=== PATIENT | male | born 1990 | race Two or more races ===

== ENCOUNTER 2020-07-26 10:56 | Emergency (ER) | payer OTHER ==
[~2020-07-26] VITALS: Ht 177.8 cm; Wt 90.7 kg
[2020-07-26 10:56] VITALS: BP 190/121
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
[2020-07-26] MEDS ORDERED: LORazepam Inj 2mg/ml 1ml IV ONE ×3 (11:00→20:00)
--- NOTE | 2020-07-26 11:00 | NUR ---
ED Nurse Note: IV line established by EMT on right wrist 18, patent and intact. Blood, urine, covid swab collected and sent to lab.
--- NOTE | 2020-07-26 11:05 | NUR ---
Pt belongings placed in LOCKER #1
[2020-07-26] MEDS ORDERED: Omnipaque-300 100ml vial INJ ONE (11:15)
[2020-07-26 11:33] LABS: APPEARANCE,URINE CLEAR; BILIRUBIN, URINE NEGATIVE (NEGATIVE); COLOR,URINE PALE YELLOW; GLUCOSE, URINE (UA) 4+ (NEGATIVE); KETONES,URINE 1+ (NEGATIVE); LEUKOCYTE ESTERASE ,URINE NEGATIVE (NEGATIVE); NITRITE,URINE NEGATIVE (NEGATIVE); PH,URINE 5 (4.5-8.0); PROTEIN,URINE 4+ (NEGATIVE); UROBILINOGEN,URINE NORMAL MG/DL (0.0-1.0)
[2020-07-26 11:34] LABS: BASOPHILS % (AUTO) 3.8 % (0.0-2.0); EOSINOPHILS % (AUTO) 0.5 % (0.0-3.0); HEMATOCRIT 48.9 % (42.0-52.0); HEMOGLOBIN 16.2 G/DL (14.2-18.0); LYMPHOCYTES % (AUTO) 24.8 % (20.0-45.0); MEAN CORPUSCULAR VOLUME 93 FL (80-99); PLATELET COUNT 188 K/UL (150-450); RED BLOOD COUNT 5.26 M/UL (4.70-6.10); RED CELL DISTRIBUTION WIDTH 11.9 % (11.6-14.8); WHITE BLOOD COUNT 5.8 K/UL (4.8-10.8)
[2020-07-26] MEDS ORDERED: Thiamine 100mg tab ORAL ONE (11:45)
[2020-07-26 11:48] LABS: AMMONIA 38 umol/L (11-32)
[2020-07-26 11:50] LABS: ANION GAP 14 mmol/L (5-15); BLOOD UREA NITROGEN 6 mg/dL (7-18); CARBON DIOXIDE 27 MMOL/L (21-32); CHLORIDE 99 MMOL/L (98-107); POTASSIUM 3.8 MMOL/L (3.5-5.1); SODIUM 140 MMOL/L (136-145)
[2020-07-26 12:02] LABS: ALANINE AMINOTRANSFERASE 233 U/L (12-78); ALBUMIN 3.7 G/DL (3.4-5.0); ALBUMIN/GLOBULIN RATIO 0.7 (1.0-2.7); ALKALINE PHOSPHATASE 107 U/L (46-116); ASPARTATE AMINO TRANSFERASE 263 U/L (15-37); BILIRUBIN,TOTAL 0.6 MG/DL (0.2-1.0)
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
[2020-07-26 13:10] VITALS: BP 132/81
--- NOTE | 2020-07-26 13:30 | NUR ---
ED Nurse Note: Pt went to CT via gurbeltran accompanied by a tech.
--- NOTE | 2020-07-26 13:52 | NUR ---
ED Nurse Note: Pt returned from CT.
--- NOTE | 2020-07-26 14:26 | Diagnostic Imaging Report ---
Indications: Altered mental status Technique: Spiral acquisitions obtained through the brain. Angled axial and coronal 5 x 5 mm slices were reconstructed. Total dose length product 1503 mGycm. CTDI vol(s) 53 x 2 mGy. Dose reduction achieved using automated exposure control Comparison: None. Findings: No acute intracranial hemorrhage or edema. No mass effect nor midline shift. Normal donahue-white differentiation. Normal size ventricles and extra-axial CSF spaces. Intact calvarium. The mastoids are clear. Visualized orbits and sinuses are unremarkable. Impression: Negative The CT scanner at [facility] is accredited by the [employer] and the scans are performed using protocols designed to limit radiation exposure to as low as reasonably achievable to attain images of sufficient resolution adequate for diagnostic evaluation.
--- NOTE | 2020-07-26 14:28 | Diagnostic Imaging Report ---
Indication: Neck pain Technique: Spiral acquisitions obtained through the cervical spine. No IV contrast utilized. Multiplanar reconstructions were generated. Total dose length product 1201 mGycm. CTDIvol(s) 40 mGy. Dose reduction achieved using automated exposure control. Comparison: none Findings: There is slight reversal of normal cervical lordosis, otherwise normal bony alignment. Vertebral body heights preserved. Disc spaces are preserved. No acute fractures. No dislocations. No significant disc bulge or protrusion, spinal stenosis, or neural foraminal stenosis demonstrated. The included extraspinal soft tissues are unremarkable. Impression: Negative The CT scanner at [facility] is accredited by the [employer] and the scans are performed using protocols designed to limit radiation exposure to as low as reasonably achievable to attain images of sufficient resolution adequate for diagnostic evaluation.
--- NOTE | 2020-07-26 14:36 | Diagnostic Imaging Report ---
CLINICAL INDICATION:Chest and left flank pain, status post fall 4 days ago TECHNIQUE: No oral contrast, per the emergency room physician request. IV ministration nonionic contrast. Multiphasic spiral acquisitions obtained through the chest, abdomen, and pelvis. Multiplanar reconstructions were generated. Total dose length product 1037 mGycm. CTDIvol(s) mGy. Radiation dose was minimized using automated exposure control COMPARISON: none FINDINGS Chest: The lungs are clear. No infiltrates, effusions, masses, nodules, or congestion. The bones are unremarkable. No acute fractures. No significant soft tissue contusion. No pneumothorax. The heart size is normal. No pericardial effusion. No mediastinal or hilar mass or adenopathy. The thyroid is unremarkable. No axillary or chest wall mass or adenopathy. Abdomen pelvis: The liver is diffusely hypoattenuating, consistent with fatty change. The gallbladder, bile ducts, pancreas, spleen, adrenals, kidneys are unremarkable. No retroperitoneal or mesenteric mass or adenopathy. No pelvic mass or adenopathy. The bones are unremarkable. There is no evidence of significant soft tissue contusion. There are questionably a few small colonic diverticula. No evidence of diverticulitis. The appendix is normal. No small bowel distention. No free or loculated intraperitoneal gas or fluid is evident. The stomach and duodenum are unremarkable. IMPRESSION: No evidence of acute bony, soft tissue, or solid organ trauma Fatty liver Questionable colonic diverticulosis The CT scanner at [facility] is accredited by the [employer] and the scans are performed using protocols designed to limit radiation exposure to as low as reasonably achievable to attain images of sufficient resolution adequate for diagnostic evaluation.
[2020-07-26 15:24] VITALS: BP 122/77
--- NOTE | 2020-07-26 15:30 | Emergency Room Report ---
Physical Exam Vital Signs Date Time Temp Pulse Resp B/P (MAP) Pulse Ox O2 Delivery O2 Flow Rate FiO2 07/26/20 10:52 98.4 124 16 190/121 (144) 98 Room Air Medical Decision Making Diagnostic Impression: Primary Impression: Suicidal ideation Additional Impressions: Alcohol intoxication Alcoholism Flank pain Schizophrenia Agitated ER Course Assumed care of the patient from the previous provider at approximately 1400 hrs. Please refer to initial note for full history and physical exam. Briefly, 30-year-old male brought in on 5150 hold for agitation, suicidal ideation. Labs show alcohol intoxication and benzodiazepines that he was given these in the ED and prior to arrival by EMS. Patient was complaining of flank pain and CT scan of the torso was ordered which showed fatty liver and questionable diverticulosis but no findings to account for the patient's flank pain. He is resting comfortably at this time. CT scans of the head and cervical spine were also performed and are within normal limits. Awaiting for alcohol level to normalize after which the patient will be transferred to psychiatric facility. Labs Test 07/26/20 11:00 07/26/20 11:20 07/26/20 15:45 07/26/20 17:10 White Blood Count 5.8 K/UL (4.8-10.8) Red Blood Count 5.26 M/UL (4.70-6.10) Hemoglobin 16.2 G/DL (14.2-18.0) Hematocrit 48.9 % (42.0-52.0) Mean Corpuscular Volume 93 FL (80-99) Mean Corpuscular Hemoglobin 30.9 PG (27.0-31.0) Mean Corpuscular Hemoglobin Concent 33.2 G/DL (32.0-36.0) Red Cell Distribution Width 11.9 % (11.6-14.8) Platelet Count 188 K/UL (150-450) Mean Platelet Volume 8.3 FL (6.5-10.1) Neutrophils (%) (Auto) 56.0 % (45.0-75.0) Lymphocytes (%) (Auto) 24.8 % (20.0-45.0) Monocytes (%) (Auto) 15.0 % (1.0-10.0) Eosinophils (%) (Auto) 0.5 % (0.0-3.0) Basophils (%) (Auto) 3.8 % (0.0-2.0) Sodium Level 140 MMOL/L (136-145) Potassium Level 3.8 MMOL/L (3.5-5.1) Chloride Level 99 MMOL/L (98-107) Carbon Dioxide Level 27 MMOL/L (21-32) Anion Gap 14 mmol/L (5-15) Blood Urea Nitrogen 6 mg/dL (7-18) Creatinine 1.0 MG/DL (0.55-1.30) Estimat Glomerular Filtration Rate > 60 mL/min (>60) Glucose Level 359 MG/DL (74-106) Calcium Level 9.0 MG/DL (8.5-10.1) Total Bilirubin 0.6 MG/DL (0.2-1.0) Aspartate Amino Transf (AST/SGOT) 263 U/L (15-37) Alanine Aminotransferase (ALT/SGPT) 233 U/L (12-78) Alkaline Phosphatase 107 U/L (46-116) Ammonia 38 umol/L (11-32) Troponin I 0.000 ng/mL (0.000-0.056) Total Protein 9.2 G/DL (6.4-8.2) Albumin 3.7 G/DL (3.4-5.0) Globulin 5.5 g/dL Albumin/Globulin Ratio 0.7 (1.0-2.7) Thyroid Stimulating Hormone (TSH) 1.318 uiU/mL (0.358-3.740) Salicylates Level 0.2 ug/mL (2.8-20) Acetaminophen Level < 2 MCG/ML (10-30) Serum Alcohol 395 mg/dL 222 mg/dL Urine Color Pale yellow Urine Appearance Clear Urine pH 5 (4.5-8.0) Urine Specific [place] 1.015 (1.005-1.035) Urine Protein 4+ (NEGATIVE) Urine Glucose (UA) 4+ (NEGATIVE) Urine Ketones 1+ (NEGATIVE) Urine Blood 2+ (NEGATIVE) Urine Nitrite Negative (NEGATIVE) Urine Bilirubin Negative (NEGATIVE) Urine Urobilinogen Normal MG/DL (0.0-1.0) Urine Leukocyte Esterase Negative (NEGATIVE) Urine RBC 2-4 /HPF (0 - 0) Urine WBC 0 /HPF (0 - 0) Urine Squamous Epithelial Cells Occasional /LPF Urine Bacteria Occasional /HPF (NONE) Urine Opiates Screen Negative (NEGATIVE) Urine Barbiturates Screen Negative (NEGATIVE) Phencyclidine (PCP) Screen Negative (NEGATIVE) Urine Amphetamines Screen Negative (NEGATIVE) Urine Benzodiazepines Screen Positive (NEGATIVE) Urine Cocaine Screen Negative (NEGATIVE) Urine Marijuana (THC) Screen Negative (NEGATIVE) POC Whole Blood Glucose 316 MG/DL (74-106) Test 07/26/20 17:57 07/26/20 20:43 07/26/20 23:00 POC Whole Blood Glucose 238 MG/DL (74-106) Serum Alcohol 142 mg/dL 102 mg/dL CT/MRI/US Diagnostic Results CT/MRI/US Diagnostic Results : Impression CT ABD IMPRESSION: No evidence of acute bony, soft tissue, or solid organ trauma Fatty liver Questionable colonic diverticulosis Dictated By: Adrian Wright MD Electronically Signed By: Adrian Wright MD Signed Date/Time 07/26/20 1431 CC: Leia Avitia D.O. Last Vital Signs Date Time Temp Pulse Resp B/P (MAP) Pulse Ox O2 Delivery O2 Flow Rate FiO2 07/26/20 12:33 94 19 145/78 100 07/26/20 10:56 Room Air 07/26/20 10:56 98.4 Disposition: PSYCH HOSP/UNIT Condition: Stable [facility]: [facility] ([facility]P) Patient Instructions: Self-Destructive Behavior Asael Crisostomo MD Jul 26, 2020 15:30
--- NOTE | 2020-07-26 15:39 | NUR ---
ED Nurse Note: Patient sleeping in bed, semi-vieyra position. Pulse oximetry reading was 87% on room and improved after getting oxygen 2L via N/C. Regular, unlabored breathing noted. Dr. Crisostomo notified. Sitter remained at bedside.
--- NOTE | 2020-07-26 15:48 | NUR ---
ED Nurse Note: Dr. Crisostomo notified of accu check 315mg/dl. No further order received at this time.
--- NOTE | 2020-07-26 17:11 | NUR ---
ED Nurse Note: Repeat alcohol serum collected, sent to lab.
--- NOTE | 2020-07-26 17:58 | NUR ---
ED Nurse Note: Dinner tray provided.
[2020-07-26 18:54] VITALS: BP 128/76
--- NOTE | 2020-07-26 19:01 | NUR ---
HAND-OFF: Report given to Syl PRIETO.
--- NOTE | 2020-07-26 19:05 | NUR ---
ED Nurse Note: Report received from CONNER Cuellar. Patient is awake and alert, speaking in full sentences. No respiratory distress. RN explained plan of care to patient. He denies SI/HI and is calm/cooperative at this time. Patient offered toileting and nourishment, refused at this time. RN bedside, will continue to monitor. Safety measures met.
--- NOTE | 2020-07-26 19:40 | NUR ---
ED Nurse Note: Patient appears mildly anxious and is walking around in room with steady gait. RN bedside monitoring patient. ERMD notified, will administer ativan.
[2020-07-26 21:00] VITALS: BP 130/70
--- NOTE | 2020-07-26 21:00 | NUR ---
ED Nurse Note: Repeat DELL drawn and sent to lab. Patient is calm and cooperative. NAD. Safety measures in place, RN monitoring patient.
--- NOTE | 2020-07-26 21:45 | NUR ---
ED Nurse Note: Patient had episode of vomiting, ERMD notified. Will administer zofran.
--- NOTE | 2020-07-26 23:15 | NUR ---
ED Nurse Note: Patient is aaox4, breathing is normal and unlabored. DELL redrawn and sent to lab. Patient is resting in bed and is cooperative. He is not anxious at this time. RN bedside, will continue to monitor.
[2020-07-27] VITALS: BP 119/78
--- NOTE | 2020-07-27 | NUR ---
ED Nurse Note: Patient had another episode of dry heaving, no emesis at this time. Patient is also requesting medication to help him sleep. notified.
[2020-07-27] MEDS ORDERED: DiphenhydrAMINE 50mg/ml Inj IM ONE (00:15)
--- NOTE | 2020-07-27 00:54 | Emergency Room Report ---
Physical Exam Vital Signs Date Time Temp Pulse Resp B/P (MAP) Pulse Ox O2 Delivery O2 Flow Rate FiO2 07/26/20 10:52 98.4 124 16 190/121 (144) 98 Room Air 07/26/20 15:38 2.0 Medical Decision Making Diagnostic Impression: Primary Impression: Suicidal ideation Additional Impressions: Alcohol intoxication Alcoholism Flank pain Schizophrenia Agitated ER Course 30-year-old male under psychiatric hold 5150. Repeat alcohol was 102. Patient was medically cleared. Currently awaiting placement. Last Vital Signs Date Time Temp Pulse Resp B/P (MAP) Pulse Ox O2 Delivery O2 Flow Rate FiO2 07/26/20 21:00 98.0 95 16 130/70 98 Room Air 07/26/20 15:38 2.0 Disposition: PSYCH HOSP/UNIT Condition: Stable [facility]: [facility]) Patient Instructions: Self-Destructive Behavior Amrik Kelley M.D. Jul 27, 2020 00:54
--- NOTE | 2020-07-27 01:00 | NUR ---
ED Nurse Note: Patient is resting in bed and appears to be sleeping. NAD. Breathing is normal and unlabored. RN remains bedside monitoring patient with safety measures in place.
--- NOTE | 2020-07-27 01:36 | NUR ---
ED Nurse Note: OSMANI bedside speaking with patient. Patients states he is withdrawaling from alcohol. He notes he drinks vodka everyday. No noticeable tremors or other symptoms at this time. Patient is resting in bed.
[2020-07-27] MEDS ORDERED: chlordiazePOXIDE 25mg Cap ORAL ONE ×2 (01:45→07:15)
[2020-07-27 04:45] VITALS: BP 145/96
--- NOTE | 2020-07-27 04:45 | NUR ---
ED Nurse Note: Patient is awake and resting in bed. Patient offered oral hydration and nourishment, refused at this time. Patient has been able to ambulate with steady gait to restroom with RN supervision. VSS. Patient is in no acute distress at this time. Will continue to monitor.
--- NOTE | 2020-07-27 05:15 | NUR ---
ED Nurse Note: Report given to CONNER Garay at [facility].
--- NOTE | 2020-07-27 06:57 | NUR ---
HAND-OFF: Report given to CONNER Mancilla. Patient is in bed, awaiting on ambulance transport at this time. Pt is aware and cooperative with plan.
--- NOTE | 2020-07-27 07:12 | Emergency Room Report ---
Physical Exam Vital Signs Date Time Temp Pulse Resp B/P (MAP) Pulse Ox O2 Delivery O2 Flow Rate FiO2 07/26/20 10:52 98.4 124 16 190/121 (144) 98 Room Air 07/26/20 15:38 2.0 Sp02 EP Interpretation: reviewed, normal Medical Decision Making Diagnostic Impression: Primary Impression: Suicidal ideation Additional Impressions: Alcohol intoxication Alcoholism Flank pain Schizophrenia Agitated ER Course Patient signed out to me by previous ER MD. I, Dr Leia Avitia, have assumed care of the patient. Initial workup, history , and physical performed by previous provider has been reviewed by myself and I have performed my own physical exam of the patient. Patient is medically clear. Initially came on a 5150 hold for suicidal ideation and was found to be critically intoxicated with alcohol. He was given time and IV fluids. Alcohol level went from 395, now [id number]. No active signs of alcohol withdrawal. Patient received thiamine , folic acid, Librium Florian scan is negative for any acute injury. COVID swab was negative. Patient is now GCS 15, neurologically intact, and willing to go to [facility] for continuation of psychiatric care. Reevaluation Time: 07:12 Last Vital Signs Date Time Temp Pulse Resp B/P (MAP) Pulse Ox O2 Delivery O2 Flow Rate FiO2 07/27/20 04:45 97.8 90 16 145/96 98 Room Air 07/26/20 15:38 2.0 Status: improved Disposition: PSYCH HOSP/UNIT Admit Decision Time: 07:12 Condition: Stable [facility]) Patient Instructions: Self-Destructive Behavior Leia Avitia D.O. Jul 27, 2020 07:12
[2020-07-27 07:20] VITALS: BP 151/97
--- NOTE | 2020-07-27 07:20 | NUR ---
ED Nurse Note: report received from CONNER Streeter. Pt is lying comfortably in semi fowlers with no signs of distress. A+Ox4, speaking in full sentences, calm and cooperative, denies SI/HI. Respirations even and unlabored on room air. Vitals stable as documented.
[2020-07-27] MEDS ORDERED: LORazepam Inj 2mg/ml 1ml IV ONE (08:30)
--- NOTE | 2020-07-27 08:30 | NUR ---
ED Nurse Note: [facility] @ bedside. Report given. BP increased to 190s/110s. Pt asymptomatic. ED MD aware.
[2020-07-27] MEDS ORDERED: Enalaprilat 1.25mg/ml Inj IV ONE (08:44)
--- NOTE | 2020-07-27 08:50 | NUR ---
ED Nurse Note: ativan administered for anxiety. BP still elevated. Vastotec to be ordered by ED MD.
[2020-07-27] MEDS: Enalaprilat 2.5mg/2ml Inj IV ONE ×2 (08:51→08:59)
--- NOTE | 2020-07-27 09:03 | NUR ---
ED Nurse Note: order from ED MD to give 1.25 mg of vasotec IVP. Medication not showing up in pyxsis. Used override to take out medication. Visually inspected bottle - vasotec 1.25mg/1ml. 1 ml administered IVP. Order noted in [facility] to be a 2 ml bottle instead of 1 ml bottle. Unable to scan. Manually inputted. Correct dose/correct route administered to correct patient. Made Charge nurse Catina chandra.
[2020-07-27 09:05] VITALS: BP 160/90
--- NOTE | 2020-07-27 09:05 | NUR ---
ED Nurse Note: Pt's bp now 160/90. [facility] okay to transport to [facility]. All belongings from locker given to ambulance personnel. IV and ID removed. Pt in stable condition. A+Ox4, calm and cooperative. Pt is cleared to be discharged by ED MD. Pt discharged safely via gurney.
== END 2020-07-27 09:10 ==
LOC: EDBD 10:56 → EMR 11:54
DX: R45.851 Suicidal ideations (principal); F10.129 Alcohol abuse with intoxication, unspecified; Y90.8 Blood alcohol level of 240 mg/100 ml or more; R10.9 Unspecified abdominal pain; F20.9 Schizophrenia, unspecified; R45.1 Restlessness and agitation
CPT/HCPCS: 36415; 70450; 71260; 72125; 74177; 80053; 80307; 81003; 82140; 82962; 84443; 84484; 85025; 93005; 96361; 96372; 96374; 96375; 96376; G0480; G0481; J1200; J2405; J7030; Q9965; U0002; Z7502; 99291